=== PATIENT | female | born 1975 | race Caucasian/White ===

== ENCOUNTER → 2017-12-21 | Outpatient (REF) | payer OTHER ==
[2017-12-21 12:24] LABS: BASO # 0.1 10^3/uL (0.0-0.2); BASO % 0.5 % (0.0-1.0); EOS # 0.3 10^3/uL (0.0-0.50); EOS % 2.1 % (0.0-3.0); HEMATOCRIT 38.4 % (36.0-47.0); HEMOGLOBIN 12.3 g/dl (12.0-16.0); IMMATURE GRANULOCYTE % 0.3 % (0-3.0); LYMPH # 3.7 10^3/uL (1.5-4.5); LYMPH % 30.6 % (24.0-44.0); MEAN CORPUSCULAR HEMOGLOBIN 29.4 pg (27.0-33.0); MEAN CORPUSCULAR VOLUME 91.9 fl (80.0-96.0); MONO # 0.7 10^3/uL (0.0-0.8); MONO % 5.8 % (0.0-5.0); NEUTROPHILS # 7.4 10^3/uL (1.8-7.7); NEUTROPHILS % 60.7 % (36.0-66.0); PLATELET COUNT, AUTOMATED 347 10^3/uL (150-450); RED BLOOD COUNT 4.18 10^6/uL (4.00-5.40); RED CELL DISTRIBUTION WIDTH 13.9 % (11.5-14.5); WHITE BLOOD COUNT 12.1 10^3/uL (4.0-10.0)
[2017-12-21 12:55] LABS: TOTAL 25(OH) VITAMIN D 27.3 NG/ML (30.0-100.0)
[2017-12-21 12:56] LABS: ALBUMIN 4.1 GM/DL (3.2-5.2); ALBUMIN/GLOBULIN RATIO 1.37 (1.00-1.93); ALKALINE PHOSPHATASE 81 U/L (45-117); ALT/SGPT 15 U/L (12-78); ANION GAP 6 MEQ/L (8-16); AST/SGOT 11 U/L (7-37); BILIRUBIN,TOTAL 0.2 MG/DL (0.2-1.0); BLOOD UREA NITROGEN 15 MG/DL (7-18); CALCIUM LEVEL 8.7 MG/DL (8.5-10.1); CARBON DIOXIDE LEVEL 29 MEQ/L (21-32); CHLORIDE LEVEL 105 MEQ/L (98-107); CREATININE FOR GFR 0.79 MG/DL (0.55-1.30); FREE T4 1.02 NG/DL (0.76-1.46); GLOMERULAR FILTRATION RATE > 60.0 (>58); GLUCOSE, FASTING 84 MG/DL (70-100); POTASSIUM SERUM 4.1 MEQ/L (3.5-5.1); SODIUM LEVEL 140 MEQ/L (136-145); TOTAL PROTEIN 7.1 GM/DL (6.4-8.2)
[2017-12-21 13:26] LABS: ESTIMATED AVERAGE GLUCOSE 111 MG/DL (60-110); HEMOGLOBIN A1c 5.5 %
== END ==
LOC: M LABDRAW1 08:49
DX: Z00.00 Encounter for general adult medical examination without abnormal findings (principal); E55.9 Vitamin D deficiency, unspecified; E03.8 Other specified hypothyroidism; I80.00 Phlebitis and thrombophlebitis of superficial vessels of unspecified lower extremity; R73.01 Impaired fasting glucose
CPT/HCPCS: 84443

== ENCOUNTER → 2019-10-20 | Outpatient (REF) | payer OTHER ==
[2019-10-20 12:06] LABS: ALBUMIN 3.8 GM/DL (3.2-5.2); ALT/SGPT 21 U/L (12-78); BILIRUBIN,TOTAL 0.3 MG/DL (0.2-1.0); BLOOD UREA NITROGEN 20 MG/DL (7-18); CARBON DIOXIDE LEVEL 23 MEQ/L (21-32); CHLORIDE LEVEL 105 MEQ/L (98-107); CHOLESTEROL LEVEL 227 MG/DL (<200); CREATININE FOR GFR 0.88 MG/DL (0.55-1.30); FREE T4 1.16 NG/DL (0.76-1.46); GLOMERULAR FILTRATION RATE > 60.0 (>58); GLUCOSE, FASTING 80 MG/DL (70-100); HDL CHOLESTEROL 51 MG/DL (>40); LDL CHOLESTEROL 160 MG/DL (<100); NON-HDL-C 176 MG/DL; POTASSIUM SERUM 4.3 MEQ/L (3.5-5.1); RHEUMATOID FACTOR QUANT < 10.0 IU/ML (<15.0); SODIUM LEVEL 138 MEQ/L (136-145); TOTAL 25(OH) VITAMIN D 35.3 NG/ML (30.0-100.0); TOTAL PROTEIN 7.2 GM/DL (6.4-8.2); TRIGLYCERIDES LEVEL 79 MG/DL (<150)
[2019-10-20 12:16] LABS: HEMOGLOBIN A1c 5.5 %
[2019-10-23 00:06] LABS: ANA (HEP2) Positive (.); CYCLIC CITRULLINATED PEPTIDE 6 units (0-19); Lyme Disease IgG/IgM Antibodie <0.91 ISR (0.00-0.90); Lyme Disease IgM Ab Quantitati <0.80 index (0.00-0.79)
== END ==
LOC: M LABDRAW1 09:45
PROVIDERS: ATTEND Physician Assistant
DX: R73.01 Impaired fasting glucose (principal); E55.9 Vitamin D deficiency, unspecified; E03.8 Other specified hypothyroidism; M25.50 Pain in unspecified joint

== ENCOUNTER → 2019-12-22 | Outpatient (CLI) | payer OTHER ==
[2019-12-25 00:07] LABS: ANA (HEP2) Positive (.)
== END ==
LOC: M LAB 18:30
PROVIDERS: ATTEND Physician Assistant
DX: R74.9 Abnormal serum enzyme level, unspecified (principal)

== ENCOUNTER → 2020-02-23 | Outpatient (REF) | payer OTHER | LOC: M SFHCWAGY 17:57 | PROVIDERS: ATTEND Advanced Practice Midwife | DX: Z12.4 Encounter for screening for malignant neoplasm of cervix (principal) | CPT/HCPCS: 87624; G0123 ==

== ENCOUNTER → 2020-03-26 | Outpatient (CLI) | payer OTHER ==
[2020-03-26 17:32] LABS: ALT/SGPT 18 U/L (12-78); BLOOD UREA NITROGEN 11 MG/DL (7-18); CALCIUM LEVEL 8.5 MG/DL (8.5-10.1); CARBON DIOXIDE LEVEL 28 MEQ/L (21-32); CHLORIDE LEVEL 106 MEQ/L (98-107); CREATININE FOR GFR 0.77 MG/DL (0.55-1.30); GLOMERULAR FILTRATION RATE > 60.0 (>58); GLUCOSE, FASTING 80 MG/DL (70-100); POTASSIUM SERUM 4.6 MEQ/L (3.5-5.1); SODIUM LEVEL 138 MEQ/L (136-145)
[2020-03-26 17:33] LABS: ALBUMIN 3.7 GM/DL (3.2-5.2); BILIRUBIN,TOTAL 0.4 MG/DL (0.2-1.0); FREE T4 1.15 NG/DL (0.76-1.46); TOTAL PROTEIN 6.8 GM/DL (6.4-8.2)
[2020-03-26 17:52] LABS: HEMOGLOBIN A1c 5.4 %
== END ==
LOC: M PLALAB 15:30
PROVIDERS: ATTEND Physician Assistant
DX: R73.01 Impaired fasting glucose (principal); E03.8 Other specified hypothyroidism; E55.9 Vitamin D deficiency, unspecified

== ENCOUNTER → 2020-04-29 | Outpatient (REF) | payer OTHER ==
[2020-04-29 16:00] LABS: APPEARANCE, URINE CLOUDY (CLEAR); BACTERIA, URINE AUTO NEGATIVE (NEGATIVE); BILIRUBIN, URINE AUTO NEGATIVE (NEGATIVE); BLOOD, URINE BLOOD NEGATIVE (NEGATIVE); COLOR, URINE YELLOW (YELLOW); GLUCOSE, URINE (UA) AUTO NEGATIVE (NEGATIVE); KETONE, URINE AUTO NEGATIVE (NEGATIVE); LEUKOCYTE ESTERASE, URINE AUTO NEGATIVE (NEGATIVE); MUCUS, URINE SMALL (NEGATIVE); NITRITE, URINE AUTO NEGATIVE (NEGATIVE); PROTEIN, URINE AUTO NEGATIVE (NEGATIVE); RBC, URINE AUTO 0 /HPF (0-3); SPECIFIC GRAVITY URINE AUTO 1.026 (1.002-1.035); SQUAMOUS EPITHELIAL CELL UR AU 3 /HPF (0-6); UROBILINOGEN, URINE AUTO 0.2 mg/dL (0.0-2.0); WBC, URINE AUTO 0 /HPF (0-3)
[2020-05-03 11:12] LABS: ANTI CENTROMERE ANTIBODY <0.2 AI (0.0-0.9); ANTI DS-DNA AB Negative (Negative); ANTI SCLERODERMA ANTIBODIES <0.2 AI (0.0-0.9); ANTI-SMOOTH MUSCLE ANTIBODY 14 Units (0-19); CYCLIC CITRULLINATED PEPTIDE 4 units (0-19); RNP ANTIBODY < 0.2 AI (0.0-0.9); SMITHS ANTIBODY < 0.2 AI (0.0-0.9); SSA SJOGRENS A <0.2 AI (0.0-0.9); SSB SJOGRENS B <0.2 AI (0.0-0.9)
== END ==
LOC: M SFHCRHEU 13:47 → M PLALAB 13:47
PROVIDERS: ATTEND Internal Medicine Rheumatology
DX: R76.8 Other specified abnormal immunological findings in serum (principal)

== ENCOUNTER → 2021-01-11 | Outpatient (CLI) | payer OTHER ==
[2021-01-11 15:42] LABS: BASO % 0.3 % (0.0-1.0); EOS % 0.2 % (0.0-3.0); HEMATOCRIT 38.5 % (36.0-47.0); HEMOGLOBIN 11.7 g/dl (12.0-15.5); LYMPH # 2.4 10^3/uL (1.5-5.0); LYMPH % 27.3 % (24.0-44.0); MEAN CORPUSCULAR HGB CONC 30.4 g/dl (32.0-36.5); MEAN CORPUSCULAR VOLUME 88.7 fl (80.0-96.0); MONO # 0.5 10^3/uL (0.0-0.8); MONO % 6.1 % (2.0-8.0); NEUTROPHILS # 5.7 10^3/uL (1.5-8.5); NEUTROPHILS % 65.8 % (36.0-66.0); PLATELET COUNT, AUTOMATED 360 10^3/uL (150-450); RED BLOOD COUNT 4.34 10^6/uL (4.00-5.40); WHITE BLOOD COUNT 8.6 10^3/uL (4.0-10.0)
[2021-01-11 16:24] LABS: ALBUMIN 4.2 GM/DL (3.2-5.2); ALT/SGPT 13 U/L (12-78); BILIRUBIN,TOTAL 0.3 MG/DL (0.2-1.0); BLOOD UREA NITROGEN 9 MG/DL (7-18); CALCIUM LEVEL 9.1 MG/DL (8.5-10.1); CARBON DIOXIDE LEVEL 25 MEQ/L (21-32); CHLORIDE LEVEL 107 MEQ/L (98-107); CHOLESTEROL LEVEL 227 MG/DL (<200); CHOLESTEROL RISK RATIO 3.783 (<5); CREATININE FOR GFR 0.82 MG/DL (0.55-1.30); FREE T4 1.17 NG/DL (0.76-1.46); GLOMERULAR FILTRATION RATE > 60.0 (>58); GLUCOSE, FASTING 82 MG/DL (70-100); HDL CHOLESTEROL 60 MG/DL (>40); LDL CHOLESTEROL 146 MG/DL (<100); NON-HDL-C 167 MG/DL; POTASSIUM SERUM 4.5 MEQ/L (3.5-5.1); SODIUM LEVEL 138 MEQ/L (136-145); THYROID STIMULATING HORMONE 0.785 uIU/ML (0.358-3.740); TOTAL 25(OH) VITAMIN D 58.5 NG/ML (30.0-100.0); TOTAL PROTEIN 7.1 GM/DL (6.4-8.2); TRIGLYCERIDES LEVEL 106 MG/DL (<150)
[2021-01-11 16:33] LABS: HEMOGLOBIN A1c 5.6 %
== END ==
LOC: M PLALAB 12:30
PROVIDERS: ATTEND Physician Assistant
DX: R73.01 Impaired fasting glucose (principal); F41.1 Generalized anxiety disorder; E55.9 Vitamin D deficiency, unspecified

== ENCOUNTER → 2021-06-16 | Outpatient (REF) | LOC: M LABSMTC 10:22 | PROVIDERS: ATTEND Family Medicine | DX: Z20.822 Contact with and (suspected) exposure to COVID-19 (principal) ==

== ENCOUNTER → 2021-07-11 | Outpatient (CLI) | payer OTHER ==
[2021-07-11 15:57] LABS: BASO % 0.4 % (0.0-1.0); EOS # 0.2 10^3/uL (0.0-0.5); HEMATOCRIT 36.1 % (36.0-47.0); HEMOGLOBIN 10.7 g/dl (12.0-15.5); LYMPH # 2.2 10^3/uL (1.5-5.0); LYMPH % 24.4 % (24.0-44.0); MEAN CORPUSCULAR HGB CONC 29.6 g/dl (32.0-36.5); MEAN CORPUSCULAR VOLUME 84.3 fl (80.0-96.0); MONO # 0.6 10^3/uL (0.0-0.8); MONO % 6.4 % (2.0-8.0); NEUTROPHILS # 6.1 10^3/uL (1.5-8.5); NEUTROPHILS % 66.4 % (36.0-66.0); PLATELET COUNT, AUTOMATED 398 10^3/uL (150-450); RED BLOOD COUNT 4.28 10^6/uL (4.00-5.40); WHITE BLOOD COUNT 9.1 10^3/uL (4.0-10.0)
[2021-07-11 16:22] LABS: ALBUMIN 3.6 GM/DL (3.2-5.2); ALT/SGPT 13 U/L (12-78); BILIRUBIN,TOTAL 0.3 MG/DL (0.2-1.0); BLOOD UREA NITROGEN 10 MG/DL (7-18); CALCIUM LEVEL 8.8 MG/DL (8.5-10.1); CARBON DIOXIDE LEVEL 28 MEQ/L (21-32); CHLORIDE LEVEL 105 MEQ/L (98-107); CHOLESTEROL LEVEL 227 MG/DL (<200); CHOLESTEROL RISK RATIO 3.152 (<5); CREATININE FOR GFR 0.74 MG/DL (0.55-1.30); FREE T4 0.94 NG/DL (0.76-1.46); GLOMERULAR FILTRATION RATE > 60.0 (>58); GLUCOSE, FASTING 77 MG/DL (70-100); HDL CHOLESTEROL 72 MG/DL (>40); LDL CHOLESTEROL 122 MG/DL (<100); NON-HDL-C 155 MG/DL; POTASSIUM SERUM 4.6 MEQ/L (3.5-5.1); SODIUM LEVEL 138 MEQ/L (136-145); THYROID STIMULATING HORMONE 0.989 uIU/ML (0.358-3.740); TOTAL PROTEIN 6.7 GM/DL (6.4-8.2); TRIGLYCERIDES LEVEL 166 MG/DL (<150)
[2021-07-11 16:31] LABS: HEMOGLOBIN A1c 5.7 %
== END ==
LOC: M PLALAB 14:26
PROVIDERS: ATTEND Physician Assistant
DX: R73.01 Impaired fasting glucose (principal); E03.8 Other specified hypothyroidism; E55.9 Vitamin D deficiency, unspecified; E78.2 Mixed hyperlipidemia; F41.1 Generalized anxiety disorder

== ENCOUNTER → 2022-01-19 | Outpatient (CLI) | payer OTHER ==
[2022-01-19 15:48] LABS: BASO # 0.1 10^3/uL (0.0-0.2); BASO % 0.8 % (0.0-1.0); EOS # 0.2 10^3/uL (0.0-0.5); EOS % 2.8 % (0.0-3.0); LYMPH % 25.7 % (24.0-44.0); MEAN CORPUSCULAR HEMOGLOBIN 23.4 pg (27.0-33.0); MEAN CORPUSCULAR VOLUME 78.1 fl (80.0-96.0); MONO # 0.6 10^3/uL (0.0-0.8); MONO % 7.2 % (2.0-8.0); NEUTROPHILS % 63.1 % (36.0-66.0); PLATELET COUNT, AUTOMATED 427 10^3/uL (150-450); RED BLOOD COUNT 3.84 10^6/uL (4.00-5.40)
[2022-01-19 16:01] LABS: ALBUMIN 3.5 GM/DL (3.2-5.2); ALT/SGPT 14 U/L (12-78); BILIRUBIN,TOTAL 0.4 MG/DL (0.2-1.0); BLOOD UREA NITROGEN 9 MG/DL (7-18); CALCIUM LEVEL 8.9 MG/DL (8.5-10.1); CARBON DIOXIDE LEVEL 28 MEQ/L (21-32); CHLORIDE LEVEL 107 MEQ/L (98-107); CHOLESTEROL LEVEL 189 MG/DL (<200); CHOLESTEROL RISK RATIO 2.863 (<5); CREATININE FOR GFR 0.74 MG/DL (0.55-1.30); FREE T4 1.17 NG/DL (0.76-1.46); GLOMERULAR FILTRATION RATE > 60.0 (>58); GLUCOSE, FASTING 76 MG/DL (70-100); HDL CHOLESTEROL 66 MG/DL (>40); LDL CHOLESTEROL 107 MG/DL (<100); NON-HDL-C 123 MG/DL; POTASSIUM SERUM 4.8 MEQ/L (3.5-5.1); RHEUMATOID FACTOR QUANT < 10.0 IU/ML (<15.0); SODIUM LEVEL 139 MEQ/L (136-145); TOTAL PROTEIN 6.3 GM/DL (6.4-8.2); TRIGLYCERIDES LEVEL 82 MG/DL (<150)
[2022-01-19 16:04] LABS: TOTAL 25(OH) VITAMIN D 22.9 NG/ML (30.0-100.0)
[2022-01-19 16:10] LABS: ERYTHROCYTE SEDIMENTATION RATE 28 mm/hr (0-20)
[2022-01-19 16:12] LABS: HEMOGLOBIN A1c 5.7 %
[2022-01-24 01:07] LABS: ANA (HEP2) Positive (.); CYCLIC CITRULLINATED PEPTIDE 3 units (0-19)
[2022-01-25 08:52] LABS: FERRITIN 3 NG/ML (8-252); IRON (FE) 23 UG/DL (50-170); PERCENT SATURATION 5.1 % (13.2-45.0); TOTAL IRON BINDING CAPACITY 454 UG/DL (250-450)
[2022-01-25 09:21] LABS: VITAMIN B12 LEVEL 565 PG/ML (247-911)
== END ==
LOC: M PLALAB 11:26
PROVIDERS: ATTEND Family Medicine
DX: E78.2 Mixed hyperlipidemia (principal); E55.9 Vitamin D deficiency, unspecified; I10 Essential (primary) hypertension; R73.01 Impaired fasting glucose; E03.8 Other specified hypothyroidism; R76.0 Raised antibody titer

== ENCOUNTER → 2022-01-31 | Outpatient (CLI) | payer OTHER | LOC: M LAB 16:12 | PROVIDERS: ATTEND Family Medicine | DX: D50.9 Iron deficiency anemia, unspecified (principal) ==

== ENCOUNTER 2022-02-01 07:05 | Outpatient (CLI) | payer OTHER ==
[~2022-02-01] VITALS: Ht 160 cm; Wt 77.3 kg
[2022-02-01 07:42] VITALS: BP 164/90
[2022-02-01 08:01] VITALS: BP 146/79
[2022-02-01 09:00] VITALS: BP 140/86
[2022-02-01 09:35] VITALS: BP 134/76
[2022-02-01 11:00] VITALS: BP 138/80
== END 2022-02-01 11:45 | disposition home or self-care (01) ==
LOC: M INFU 07:05
PROVIDERS: ATTEND Family Medicine
DX: D50.9 Iron deficiency anemia, unspecified (principal); Z88.0 Allergy status to penicillin
CPT/HCPCS: 36430; P9016

== ENCOUNTER → 2022-02-28 | Outpatient (CLI) | payer OTHER | LOC: M WHC 13:09 | PROVIDERS: ATTEND Advanced Practice Midwife | DX: N92.4 Excessive bleeding in the premenopausal period (principal) ==

== ENCOUNTER → 2022-03-07 | Outpatient (CLI) | payer OTHER | LOC: M WHC 10:48 | PROVIDERS: ATTEND Family Medicine | DX: Z12.31 Encounter for screening mammogram for malignant neoplasm of breast (principal); Z80.3 Family history of malignant neoplasm of breast ==

== ENCOUNTER → 2022-03-23 | Outpatient (CLI) | payer OTHER ==
[~2022-03-23] MED LIST: BYDU2INJ7 SC; ERGO500029 PO; METF10004 PO; METF500T13 PO; OMEP-173 PO; PROZ20CA11 PO; SYNT50TA PO
== END ==
LOC: M LABSMTC 09:12
PROVIDERS: ATTEND Anesthesiology
DX: Z01.812 Encounter for preprocedural laboratory examination (principal); Z20.822 Contact with and (suspected) exposure to COVID-19

== ENCOUNTER 2022-03-28 10:57 | Day surgery (SDC) | payer OTHER ==
[~2022-03-28] VITALS: Ht 160 cm; Wt 74.8 kg
[~2022-03-28 10:57] MED LIST changes: +LIDOCAINE 2% 100MG/5ML SDV (FOR ANES.) As Ordered ONE; +NS 1,000 ML IV ONE; +fentaNYL 100 MCG/2 ML INJECTION As Ordered ONE; +propofoL 500 MG/50 ML VIAL As Ordered ONE
[2022-03-28] MEDS ORDERED: FERR325T81 PO (11:12)
[2022-03-28 13:20] VITALS: BP 162/90
== END 2022-03-28 13:34 | disposition home or self-care (01) ==
LOC: M OPP 10:57
PROVIDERS: ATTEND Internal Medicine Gastroenterology
DX: Z12.11 Encounter for screening for malignant neoplasm of colon (principal); K63.5 Polyp of colon; K64.8 Other hemorrhoids; K29.70 Gastritis, unspecified, without bleeding; D50.9 Iron deficiency anemia, unspecified; R11.0 Nausea; Z79.84 Long term (current) use of oral hypoglycemic drugs; Z79.899 Other long term (current) drug therapy; Z86.711 Personal history of pulmonary embolism; Z86.718 Personal history of other venous thrombosis and embolism
CPT/HCPCS: 43239; 45380; 88305; J3010

== ENCOUNTER → 2022-06-07 | Outpatient (CLI) | payer OTHER ==
[~2022-06-07] MED LIST changes: +FERR325T81 PO; -LIDOCAINE 2% 100MG/5ML SDV (FOR ANES.) As Ordered ONE; -NS 1,000 ML IV ONE; -fentaNYL 100 MCG/2 ML INJECTION As Ordered ONE; -propofoL 500 MG/50 ML VIAL As Ordered ONE
[2022-06-07 15:49] LABS: BASO # 0.1 10^3/uL (0.0-0.2); BASO % 0.7 % (0.0-1.0); EOS # 0.2 10^3/uL (0.0-0.5); EOS % 2.3 % (0.0-3.0); HEMATOCRIT 40.9 % (36.0-47.0); HEMOGLOBIN 12.6 g/dl (12.0-15.5); LYMPH % 29.3 % (24.0-44.0); MEAN CORPUSCULAR HEMOGLOBIN 28.8 pg (27.0-33.0); MEAN CORPUSCULAR HGB CONC 30.8 g/dl (32.0-36.5); MEAN CORPUSCULAR VOLUME 93.6 fl (80.0-96.0); MONO # 0.5 10^3/uL (0.0-0.8); MONO % 6.7 % (2.0-8.0); NEUTROPHILS # 4.1 10^3/uL (1.5-8.5); NEUTROPHILS % 60.6 % (36.0-66.0); PLATELET COUNT, AUTOMATED 355 10^3/uL (150-450); RED BLOOD COUNT 4.37 10^6/uL (4.00-5.40); WHITE BLOOD COUNT 6.9 10^3/uL (4.0-10.0)
[2022-06-07 16:15] LABS: BLOOD UREA NITROGEN 7 MG/DL (7-18); CREATININE FOR GFR 0.68 MG/DL (0.55-1.30); FERRITIN 8 NG/ML (8-252); GLOMERULAR FILTRATION RATE > 60.0 (>58); IRON (FE) 43 UG/DL (50-170); PERCENT SATURATION 10.1 % (13.2-45.0); TOTAL IRON BINDING CAPACITY 426 UG/DL (250-450)
[2022-06-07 16:53] LABS: VITAMIN B12 LEVEL 387 PG/ML (247-911)
== END ==
LOC: M PLALAB 12:59
PROVIDERS: ATTEND Internal Medicine Gastroenterology
DX: D50.9 Iron deficiency anemia, unspecified (principal)

== ENCOUNTER → 2022-07-20 | Outpatient (REF) | payer OTHER ==
[2022-07-20 12:34] LABS: BASO % 0.6 % (0.0-1.0); EOS # 0.2 10^3/uL (0.0-0.5); EOS % 2.9 % (0.0-3.0); HEMATOCRIT 42.9 % (36.0-47.0); HEMOGLOBIN 13.4 g/dl (12.0-15.5); LYMPH # 1.9 10^3/uL (1.5-5.0); LYMPH % 26.8 % (24.0-44.0); MEAN CORPUSCULAR HEMOGLOBIN 29.5 pg (27.0-33.0); MEAN CORPUSCULAR HGB CONC 31.2 g/dl (32.0-36.5); MEAN CORPUSCULAR VOLUME 94.3 fl (80.0-96.0); MONO # 0.4 10^3/uL (0.0-0.8); MONO % 5.7 % (2.0-8.0); NEUTROPHILS # 4.6 10^3/uL (1.5-8.5); NEUTROPHILS % 63.7 % (36.0-66.0); PLATELET COUNT, AUTOMATED 345 10^3/uL (150-450); RED BLOOD COUNT 4.55 10^6/uL (4.00-5.40); WHITE BLOOD COUNT 7.1 10^3/uL (4.0-10.0)
[2022-07-20 12:37] LABS: APPEARANCE, URINE MANUAL CLOUDY (CLEAR); COLOR, URINE MANUAL YELLOW (YELLOW)
[2022-07-20 12:39] LABS: GLUCOSE, URINE (UA) MANUAL NEGATIVE (NEGATIVE); PROTEIN, URINE MANUAL NEGATIVE (NEGATIVE); SPECIFIC GRAVITY,URINE MANUAL 1.025 (1.002-1.035)
[2022-07-20 12:40] LABS: BILIRUBIN, URINE MANUAL NEGATIVE (NEGATIVE); BLOOD URINE MANUAL NEGATIVE (NEGATIVE); KETONE, URINE MANUAL 1+ mg/dL (NEGATIVE); LEUKOCYTE ESTERASE, URINE MAN NEGATIVE (NEGATIVE); NITRITE, URINE MANUAL NEGATIVE (NEGATIVE); UROBILINOGEN, URINE MANUAL NORMAL (NORMAL)
[2022-07-20 12:54] LABS: ERYTHROCYTE SEDIMENTATION RATE 10 mm/hr (0-20)
[2022-07-20 13:07] LABS: C REACTIVE PROTEIN QUANTITATIV 0.43 MG/DL (0.00-0.30)
[2022-07-20 13:26] LABS: TOTAL PROTEIN,RANDOM URINE 9.8 MG/DL (0.0-12.0)
[2022-07-20 13:43] LABS: TOTAL 25(OH) VITAMIN D 29.4 NG/ML (30.0-100.0)
[2022-07-20 14:23] LABS: AMORPHOUS SEDIMENT, URINE LARGE AMOUNT (NEGATIVE)
[2022-07-20 15:54] LABS: RBC, URINE 0-1 /hpf (0-3); SQUAMOUS EPITHELIAL CELL URINE SMALL AMOUNT /hpf (SMALL AMT); WBC, URINE 0-1 /hpf (0-3)
[2022-07-20 15:55] LABS: BACTERIA, URINE SMALL AMOUNT; HYALINE CAST, URINE NONE SEEN /lpf (0-1)
[2022-07-21 18:07] LABS: COMPLEMENT TOTAL (CH50) > 60 U/mL (>41); EBV AB TO NUCLEAR ANTIGEN >600.0 U/mL (0.0-17.9); EBV VIRAL CAPSID AG IgG >600.0 U/mL (0.0-17.9); EBV VIRAL CAPSID AG IgM <36.0 U/mL (0.0-35.9)
[2022-08-01 10:09] LABS: DRVV SCREEN 36.1 SEC
== END ==
LOC: M SFHCRHEU 10:13
PROVIDERS: ATTEND Internal Medicine
DX: R76.8 Other specified abnormal immunological findings in serum (principal); R53.82 Chronic fatigue, unspecified; M25.50 Pain in unspecified joint; E55.9 Vitamin D deficiency, unspecified; M70.60 Trochanteric bursitis, unspecified hip
CPT/HCPCS: 73502; 81000; 82306; 82570; 84156; 85025; 85652; 85730; 86140; 86160; 86162; 86664; 86665; G0463

== ENCOUNTER → 2022-07-20 | Outpatient (CLI) | payer OTHER | LOC: M PLALAB 11:33 | PROVIDERS: ATTEND Internal Medicine | DX: M70.60 Trochanteric bursitis, unspecified hip (principal) ==

== ENCOUNTER → 2022-09-14 | Outpatient (CLI) | payer OTHER | LOC: M SLEEP HO 13:20 | PROVIDERS: ATTEND Internal Medicine | DX: R53.82 Chronic fatigue, unspecified (principal); R06.83 Snoring ==

== ENCOUNTER → 2022-12-20 | Outpatient (CLI) | payer OTHER | LOC: M PLAIMG 13:13 | PROVIDERS: ATTEND Nurse Practitioner Adult Health | DX: S83.501A Sprain of unspecified cruciate ligament of right knee, initial encounter (principal); S80.01XA Contusion of right knee, initial encounter; Y93.9 Activity, unspecified; Y92.9 Unspecified place or not applicable ==

== ENCOUNTER → 2023-01-23 | Outpatient (CLI) | payer OTHER ==
[2023-01-23 14:08] LABS: BASO # 0.1 10^3/uL (0.0-0.2); BASO % 0.6 % (0.0-1.0); EOS # 0.3 10^3/uL (0.0-0.5); EOS % 3.1 % (0.0-3.0); HEMATOCRIT 39.7 % (36.0-47.0); HEMOGLOBIN 12.9 g/dl (12.0-15.5); LYMPH # 1.9 10^3/uL (1.5-5.0); LYMPH % 20.6 % (24.0-44.0); MEAN CORPUSCULAR HEMOGLOBIN 31.4 pg (27.0-33.0); MEAN CORPUSCULAR HGB CONC 32.5 g/dl (32.0-36.5); MEAN CORPUSCULAR VOLUME 96.6 fl (80.0-96.0); MONO # 0.6 10^3/uL (0.0-0.8); MONO % 6.7 % (2.0-8.0); NEUTROPHILS # 6.2 10^3/uL (1.5-8.5); NEUTROPHILS % 68.7 % (36.0-66.0); PLATELET COUNT, AUTOMATED 360 10^3/uL (150-450); RED BLOOD COUNT 4.11 10^6/uL (4.00-5.40)
[2023-01-23 14:12] LABS: ALBUMIN 3.5 G/DL (3.2-5.2); ALKALINE PHOSPHATASE 66 U/L (46-116); ALT/SGPT 10 U/L (7.0-40); AST/SGOT 12 U/L (<34); BILIRUBIN,TOTAL 0.2 MG/DL (0.3-1.2); BLOOD UREA NITROGEN 11 MG/DL (9-23); CALCIUM LEVEL 8.9 MG/DL (8.5-10.1); CARBON DIOXIDE LEVEL 26 MMOL/L (20-31); CHLORIDE LEVEL 107 MMOL/L (98-107); CHOLESTEROL LEVEL 232 MG/DL (<200); CHOLESTEROL RISK RATIO 3.11 (<5); FERRITIN 6.1 NG/ML (7.3-270.7); GLOMERULAR FILTRATION RATE > 60.0 (>58); GLUCOSE, FASTING 92 MG/DL (60-100); HDL CHOLESTEROL 74.4 MG/DL (>40); IRON (FE) 36 UG/DL (50-170); LDL CHOLESTEROL 138.4 MG/DL (<100); NON-HDL-C 157.6 MG/DL; PERCENT SATURATION 9.1 % (13.2-45.0); SODIUM LEVEL 137 MMOL/L (136-145); TOTAL IRON BINDING CAPACITY 395 UG/DL (250-425); TOTAL PROTEIN 6.4 G/DL (5.7-8.2); TRIGLYCERIDES LEVEL 96 MG/DL (<150)
[2023-01-23 14:13] LABS: TOTAL 25(OH) VITAMIN D 78.9 NG/ML (20.0-100.0)
[2023-01-23 14:33] LABS: HEMOGLOBIN A1c 5.1 % (4.0-6.0)
[2023-01-24 23:07] LABS: ANA (HEP2) Positive (.)
== END ==
LOC: M PLALAB 11:29
PROVIDERS: ATTEND Family Medicine
DX: D50.9 Iron deficiency anemia, unspecified (principal); E55.9 Vitamin D deficiency, unspecified; R73.01 Impaired fasting glucose; E78.2 Mixed hyperlipidemia; R76.0 Raised antibody titer

== ENCOUNTER 2023-02-05 13:47 | Outpatient (CLI) | payer OTHER ==
[~2023-02-05] VITALS: Ht 160 cm; Wt 78.6 kg
[~2023-02-05 13:47] MED LIST changes: +FERRIC CARBOXYMALTOSE INJ 750 MG in NS 250 ML (>50kg) IV ONE
[2023-02-05 14:00] VITALS: BP 162/100
[2023-02-05 15:20] VITALS: BP 135/89
== END 2023-02-05 15:30 | disposition home or self-care (01) ==
LOC: M INFU 13:47
PROVIDERS: ATTEND Family Medicine
DX: D50.9 Iron deficiency anemia, unspecified (principal); Z88.0 Allergy status to penicillin
CPT/HCPCS: 96365; J1439

== ENCOUNTER 2023-02-12 14:10 | Outpatient (CLI) | payer OTHER ==
[~2023-02-12] VITALS: Ht 160 cm; Wt 78.6 kg
[2023-02-12 15:06] LABS: THYROID STIMULATING HORMONE 1.63 uIU/ML (0.55-4.78)
[2023-02-12 15:15] LABS: FREE T4 1.09 NG/DL (0.89-1.76)
[2023-02-12 16:24] VITALS: BP 131/85
== END 2023-02-12 16:25 ==
LOC: M INFU 14:10
PROVIDERS: ATTEND Family Medicine
DX: D50.9 Iron deficiency anemia, unspecified (principal); Z88.0 Allergy status to penicillin
CPT/HCPCS: 36592; 84439; 84443; 96365; J1439

== ENCOUNTER → 2023-05-29 | Outpatient (CLI) | payer OTHER ==
[~2023-05-29] MED LIST changes: -FERRIC CARBOXYMALTOSE INJ 750 MG in NS 250 ML (>50kg) IV ONE
[2023-05-29 16:00] LABS: BASO % 0.4 % (0.0-1.0); EOS # 0.1 10^3/uL (0.0-0.5); EOS % 1.9 % (0.0-3.0); HEMATOCRIT 43.9 % (36.0-47.0); LYMPH # 1.9 10^3/uL (1.5-5.0); LYMPH % 25.5 % (24.0-44.0); MEAN CORPUSCULAR HEMOGLOBIN 31.5 pg (27.0-33.0); MEAN CORPUSCULAR HGB CONC 31.9 g/dl (32.0-36.5); MEAN CORPUSCULAR VOLUME 98.7 fl (80.0-96.0); MONO # 0.5 10^3/uL (0.0-0.8); MONO % 7.3 % (2.0-8.0); NEUTROPHILS # 4.7 10^3/uL (1.5-8.5); NEUTROPHILS % 64.6 % (36.0-66.0); PLATELET COUNT, AUTOMATED 293 10^3/uL (150-450); RED BLOOD COUNT 4.45 10^6/uL (4.00-5.40); WHITE BLOOD COUNT 7.3 10^3/uL (4.0-10.0)
[2023-05-29 16:04] LABS: IRON (FE) 97 UG/DL (50-170); PERCENT SATURATION 30.7 % (13.2-45.0); TOTAL IRON BINDING CAPACITY 316 UG/DL (250-425)
[2023-05-29 16:06] LABS: FERRITIN 229.6 NG/ML (7.3-270.7)
[2023-05-29 16:09] LABS: FOLATE > 24.00 NG/ML (>5.4)
== END ==
LOC: M PLALAB 13:04
PROVIDERS: ATTEND Nurse Practitioner Adult Health
DX: D50.9 Iron deficiency anemia, unspecified (principal)

== ENCOUNTER → 2023-08-14 | Outpatient (CLI) | payer OTHER ==
[2023-08-14 16:34] LABS: BASO % 0.6 % (0.0-1.0); EOS # 0.1 10^3/uL (0.0-0.5); EOS % 1.9 % (0.0-3.0); HEMATOCRIT 42.1 % (36.0-47.0); HEMOGLOBIN 13.5 g/dl (12.0-15.5); LYMPH # 1.4 10^3/uL (1.5-5.0); LYMPH % 19.9 % (24.0-44.0); MEAN CORPUSCULAR HEMOGLOBIN 32.1 pg (27.0-33.0); MEAN CORPUSCULAR HGB CONC 32.1 g/dl (32.0-36.5); MEAN CORPUSCULAR VOLUME 100.2 fl (80.0-96.0); MONO # 0.5 10^3/uL (0.0-0.8); MONO % 7.4 % (2.0-8.0); NEUTROPHILS # 4.7 10^3/uL (1.5-8.5); NEUTROPHILS % 70.1 % (36.0-66.0); PLATELET COUNT, AUTOMATED 287 10^3/uL (150-450); WHITE BLOOD COUNT 6.8 10^3/uL (4.0-10.0)
[2023-08-14 16:38] LABS: IRON (FE) 58 UG/DL (50-170); PERCENT SATURATION 19.1 % (13.2-45.0); TOTAL IRON BINDING CAPACITY 303 UG/DL (250-425)
[2023-08-14 16:39] LABS: ALBUMIN 3.6 G/DL (3.2-5.2); ALKALINE PHOSPHATASE 69 U/L (46-116); ALT/SGPT 12 U/L (7.0-40); AST/SGOT 14 U/L (<34); BILIRUBIN,TOTAL 0.4 MG/DL (0.3-1.2); BLOOD UREA NITROGEN 8 MG/DL (9-23); CALCIUM LEVEL 9.2 MG/DL (8.5-10.1); CARBON DIOXIDE LEVEL 28 MMOL/L (20-31); CHLORIDE LEVEL 106 MMOL/L (98-107); CHOLESTEROL LEVEL 245 MG/DL (<200); CHOLESTEROL RISK RATIO 3.34 (<5); CREATININE FOR GFR 0.79 MG/DL (0.55-1.30); GLOMERULAR FILTRATION RATE > 60.0 (>58); GLUCOSE, FASTING 87 MG/DL (60-100); HDL CHOLESTEROL 73.2 MG/DL (>40); LDL CHOLESTEROL 148.4 MG/DL (<100); NON-HDL-C 171.8 MG/DL; POTASSIUM SERUM 4.6 MMOL/L (3.5-5.1); SODIUM LEVEL 140 MMOL/L (136-145); TOTAL PROTEIN 6.4 G/DL (5.7-8.2); TRIGLYCERIDES LEVEL 117 MG/DL (<150)
[2023-08-14 16:42] LABS: FREE T4 0.99 NG/DL (0.89-1.76); THYROID STIMULATING HORMONE 1.432 uIU/ML (0.55-4.78)
[2023-08-14 16:43] LABS: VITAMIN B12 LEVEL 363 PG/ML (211-911)
[2023-08-14 16:45] LABS: FOLATE > 24.0 NG/ML (>5.4)
[2023-08-14 16:47] LABS: HEMOGLOBIN A1c 4.6 % (4.0-6.0)
== END ==
LOC: M PLALAB 13:46
PROVIDERS: ATTEND Nurse Practitioner Adult Health
DX: D50.9 Iron deficiency anemia, unspecified (principal); R73.01 Impaired fasting glucose; E78.2 Mixed hyperlipidemia; E03.8 Other specified hypothyroidism

== ENCOUNTER → 2023-11-08 | Outpatient (REF) | payer OTHER ==
[2023-11-08 13:50] LABS: C REACTIVE PROTEIN QUANTITATIV 0.6 MG/DL (<1.0)
[2023-11-08 13:54] LABS: TOTAL 25(OH) VITAMIN D 28.7 NG/ML (20.0-100.0)
== END ==
LOC: M SFHCRHEU 11:18
PROVIDERS: ATTEND Internal Medicine
DX: E55.9 Vitamin D deficiency, unspecified (principal); M25.50 Pain in unspecified joint

== ENCOUNTER 2024-02-14 08:13 | Outpatient (CLI) | payer OTHER ==
[~2024-02-14 08:13] MED LIST changes: +ALBUTEROL SULFATE 2.5MG/0.5ML INH NEB SOLN INH PRN; +EPINEPHrine INJ 1 MG/ML 1ML AMP IM PRN; +diphenhydrAMINE 50MG/ML VIAL IV PRN; +methylPREDNISolone 125MG 2ML VIAL IV PRN
[2024-02-14] MEDS: FERRIC CARBOXYMALTOSE INJ 750 MG in NS 250 ML (>50kg) IV ONE (08:23)
[2024-02-14 08:25] VITALS: BP 148/82; O2SAT 100
[2024-02-14 09:35] VITALS: BP 148/90; O2SAT 100
[2024-02-14] MEDS ORDERED: IRON SUCROSE 300 MG in NS 250 ML OVER 90 MIN. IV ONE (12:30)
[2024-02-14] MEDS ORDERED: NS 1,000 ML IV SCH (12:30)
== END 2024-02-14 09:35 | disposition home or self-care (01) ==
LOC: M INFU 08:13
PROVIDERS: ATTEND Family Medicine
DX: D50.9 Iron deficiency anemia, unspecified (principal); Z88.0 Allergy status to penicillin
CPT/HCPCS: 96365; J1439

== ENCOUNTER 2024-02-21 07:00 | Outpatient (CLI) | payer OTHER ==
[~2024-02-21] VITALS: Ht 160 cm; Wt 74.0 kg
[~2024-02-21 07:00] MED LIST changes: -ALBUTEROL SULFATE 2.5MG/0.5ML INH NEB SOLN INH PRN; -EPINEPHrine INJ 1 MG/ML 1ML AMP IM PRN; -diphenhydrAMINE 50MG/ML VIAL IV PRN; -methylPREDNISolone 125MG 2ML VIAL IV PRN
[2024-02-21 07:10] VITALS: BP 164/91; O2SAT 100
[2024-02-21] MEDS: FERRIC CARBOXYMALTOSE INJ 750 MG in NS 250 ML (>50kg) IV ONE (07:21)
[2024-02-21 08:35] VITALS: BP 146/80; O2SAT 100
[2024-02-21] MEDS ORDERED: FERRIC CARBOXYMALTOSE INJ 750 MG in NS 250 ML (>50kg) IV ONE (10:00)
== END 2024-02-21 08:35 | disposition home or self-care (01) ==
LOC: M INFU 07:00
PROVIDERS: ATTEND Family Medicine
DX: D50.9 Iron deficiency anemia, unspecified (principal); Z88.0 Allergy status to penicillin
CPT/HCPCS: 96365; J1439

== ENCOUNTER → 2024-04-07 | Outpatient (CLI) | payer OTHER | LOC: M WHC 12:59 | PROVIDERS: ATTEND Nurse Practitioner Adult Health | DX: Z12.31 Encounter for screening mammogram for malignant neoplasm of breast (principal); R92.313 Mammographic fatty tissue density, bilateral breasts ==

== ENCOUNTER → 2024-07-29 | Outpatient (REF) | payer OTHER | LOC: M SFHCRHEU 10:37 | PROVIDERS: ATTEND Internal Medicine | DX: E55.9 Vitamin D deficiency, unspecified (principal); I73.00 Raynaud's syndrome without gangrene ==

== ENCOUNTER → 2024-08-05 | Outpatient (CLI) | payer OTHER ==
[2024-08-05 14:26] LABS: BASO % 0.4 % (0.0-1.0); EOS # 0.3 10^3/uL (0.0-0.5); EOS % 3.2 % (0.0-3.0); HEMATOCRIT 44.7 % (36.0-47.0); HEMOGLOBIN 14.5 g/dl (12.0-15.5); LYMPH # 1.9 10^3/uL (1.5-5.0); LYMPH % 23.8 % (24.0-44.0); MEAN CORPUSCULAR HEMOGLOBIN 31.3 pg (27.0-33.0); MEAN CORPUSCULAR HGB CONC 32.4 g/dl (32.0-36.5); MEAN CORPUSCULAR VOLUME 96.5 fl (80.0-96.0); MONO # 0.6 10^3/uL (0.0-0.8); MONO % 7.2 % (2.0-8.0); NEUTROPHILS # 5.1 10^3/uL (1.5-8.5); NEUTROPHILS % 65.1 % (36.0-66.0); PLATELET COUNT, AUTOMATED 304 10^3/uL (150-450); RED BLOOD COUNT 4.63 10^6/uL (4.00-5.40); WHITE BLOOD COUNT 7.8 10^3/uL (4.0-10.0)
[2024-08-05 14:37] LABS: TOTAL IRON BINDING CAPACITY 289 UG/DL (250-425)
[2024-08-05 14:39] LABS: ALKALINE PHOSPHATASE 69 U/L (46-116); ALT/SGPT < 9 U/L (7.0-40); AST/SGOT < 8 U/L (<34); BILIRUBIN,TOTAL 0.4 MG/DL (0.3-1.2); BLOOD UREA NITROGEN 15 MG/DL (9-23); CALCIUM LEVEL 9.7 MG/DL (8.5-10.1); CARBON DIOXIDE LEVEL 28 MMOL/L (20-31); CHLORIDE LEVEL 108 MMOL/L (98-107); CHOLESTEROL LEVEL 202 MG/DL (<200); CHOLESTEROL RISK RATIO 2.86 (<5); CREATININE FOR GFR 0.82 MG/DL (0.55-1.30); FERRITIN 415.5 NG/ML (7.3-270.7); FREE T4 1.48 NG/DL (0.89-1.76); GLOMERULAR FILTRATION RATE > 60.0 (>51); GLUCOSE, FASTING 76 MG/DL (60-100); HDL CHOLESTEROL 70.5 MG/DL (>40); LDL CHOLESTEROL 100.5 MG/DL (<100); NON-HDL-C 131.5 MG/DL; POTASSIUM SERUM 4.4 MMOL/L (3.5-5.1); SODIUM LEVEL 141 MMOL/L (136-145); THYROID STIMULATING HORMONE 0.762 uIU/ML (0.55-4.78); TRIGLYCERIDES LEVEL 155 MG/DL (<150)
[2024-08-05 14:40] LABS: IRON (FE) 114 UG/DL (50-170); PERCENT SATURATION 39.4 % (13.2-45.0)
== END ==
LOC: M PLALAB 10:18
PROVIDERS: ATTEND Family Medicine
DX: D50.9 Iron deficiency anemia, unspecified (principal); E78.2 Mixed hyperlipidemia; R73.01 Impaired fasting glucose; E03.8 Other specified hypothyroidism

== ENCOUNTER → 2024-10-23 | Outpatient (CLI) | payer OTHER | LOC: M RAD 09:43 | PROVIDERS: ATTEND Physician Assistant | DX: M23.8X2 Other internal derangements of left knee (principal); M25.461 Effusion, right knee; Z98.890 Other specified postprocedural states ==

== ENCOUNTER → 2024-11-03 | Outpatient (CLI) | payer SELFPAY | LOC: M PLAIMG 11:01 | PROVIDERS: ATTEND Physician Assistant | DX: M25.562 Pain in left knee (principal); M25.462 Effusion, left knee; S83.242A Other tear of medial meniscus, current injury, left knee, initial encounter; X58.XXXA Exposure to other specified factors, initial encounter; Y92.9 Unspecified place or not applicable; Y93.9 Activity, unspecified; Y99.9 Unspecified external cause status ==

== ENCOUNTER → 2024-11-06 | Outpatient (CLI) | payer SELFPAY ==
[2024-11-06 15:47] LABS: ALBUMIN 3.6 G/DL (3.2-5.2); ALKALINE PHOSPHATASE 73 U/L (35-104); ALT/SGPT 12 U/L (7.0-40); AST/SGOT < 8 U/L (<34); BILIRUBIN,TOTAL 0.4 MG/DL (0.3-1.2); BLOOD UREA NITROGEN 12 MG/DL (9-23); CALCIUM LEVEL 9.3 MG/DL (8.5-10.1); CARBON DIOXIDE LEVEL 27 MMOL/L (20-31); CHLORIDE LEVEL 110 MMOL/L (98-107); CREATININE FOR GFR 0.73 MG/DL (0.55-1.30); GLOMERULAR FILTRATION RATE > 60.0 (>51); GLUCOSE, FASTING 81 MG/DL (60-100); POTASSIUM SERUM 4.5 MMOL/L (3.5-5.1); SODIUM LEVEL 143 MMOL/L (136-145); TOTAL PROTEIN 6.6 G/DL (5.7-8.2)
== END ==
LOC: M PLALAB 12:12
PROVIDERS: ATTEND Family Medicine
DX: N95.1 Menopausal and female climacteric states (principal)

== ENCOUNTER → 2025-02-03 | Outpatient (CLI) | payer BC ==
[2025-02-03 10:59] LABS: URIC ACID 5.7 MG/DL (3.1-7.8)
[2025-02-03 11:02] LABS: C REACTIVE PROTEIN QUANTITATIV 3.67 MG/DL (<1.0); FREE T4 1.28 NG/DL (0.89-1.76); RHEUMATOID FACTOR QUANT < 3.5 IU/ML (<14); THYROID STIMULATING HORMONE 1.316 uIU/ML (0.55-4.78)
[2025-02-03 11:05] LABS: THYROID PEROXIDASE ANTIBODY 37 U/ML (<60.0)
[2025-02-05 13:17] LABS: THRYOGLOBULIN ANTIBODIES (ATA) < 1 IU/mL (< or = 1); THYROGLOBULIN QUANTITATIVE 2.5 ng/mL (2.8-40.9)
[2025-02-05 14:02] LABS: IgG P18 AB NON-REACTIVE; IgG P23 AB NON-REACTIVE; IgG P28 AB NON-REACTIVE; IgG P30 AB NON-REACTIVE; IgG P39 AB NON-REACTIVE; IgG P41 AB REACTIVE; IgG P45 AB NON-REACTIVE; IgG P58 AB NON-REACTIVE; IgG P66 AB NON-REACTIVE; IgG P93 AB NON-REACTIVE; IgM P23 AB NON-REACTIVE; IgM P39 AB NON-REACTIVE; IgM P41 AB NON-REACTIVE; LYME IgG WB INTERPRETATION NEGATIVE (NEGATIVE); LYME IgM WB INTERPRETATION NEGATIVE (NEGATIVE)
== END ==
LOC: M PLALAB 08:50
PROVIDERS: ATTEND Family Medicine
DX: M25.511 Pain in right shoulder (principal)

== ENCOUNTER → 2025-08-18 | Outpatient (CLI) | payer BC ==
[~2025-08-18] MED LIST changes: -BYDU2INJ7 SC; +EXEN2AUT SC; -PROZ20CA11 PO; +PROZ20CA12 PO
[2025-08-18 13:54] LABS: BASO # 0.1 10^3/uL (0.0-0.2); BASO % 0.6 % (0.0-1.0); EOS # 0.1 10^3/uL (0.0-0.5); EOS % 1.5 % (0.0-3.0); LYMPH # 1.8 10^3/uL (1.5-5.0); LYMPH % 23.3 % (24.0-44.0); MONO # 0.5 10^3/uL (0.0-0.8); MONO % 6.2 % (2.0-8.0); NEUTROPHILS # 5.4 10^3/uL (1.5-8.5); NEUTROPHILS % 68.1 % (36.0-66.0); PLATELET COUNT, AUTOMATED 436 10^3/uL (150-450)
[2025-08-18 14:09] LABS: ESTIMATED AVERAGE GLUCOSE 103.0 MG/DL (60-110)
[2025-08-18 14:16] LABS: ALT/SGPT < 9 U/L (7.0-40); AST/SGOT 12 U/L (<34); CALCIUM LEVEL 9.2 MG/DL (8.5-10.1); CARBON DIOXIDE LEVEL 29 MMOL/L (20-31); CHLORIDE LEVEL 102 MMOL/L (98-107); CHOLESTEROL LEVEL 223 MG/DL (<200); CHOLESTEROL RISK RATIO 3.69 (<5); CREATININE FOR GFR 0.90 MG/DL (0.55-1.30); GLOMERULAR FILTRATION RATE 77.4 (>51); IRON (FE) 40 UG/DL (50-170); LDL CHOLESTEROL 139.9 MG/DL (<100); NON-HDL-C 162.7 MG/DL; PERCENT SATURATION 13.9 % (13.2-45.0); POTASSIUM SERUM 4.9 MMOL/L (3.5-5.1); SODIUM LEVEL 140 MMOL/L (136-145); TRIGLYCERIDES LEVEL 114 MG/DL (<150)
[2025-08-18 14:19] LABS: FREE T4 1.33 NG/DL (0.89-1.76); TOTAL 25(OH) VITAMIN D 60.6 NG/ML (20.0-100.0)
== END ==
LOC: M PLALAB 11:06
PROVIDERS: ATTEND Family Medicine
DX: D50.9 Iron deficiency anemia, unspecified (principal); R73.01 Impaired fasting glucose; E78.5 Hyperlipidemia, unspecified; E03.9 Hypothyroidism, unspecified; E55.9 Vitamin D deficiency, unspecified